=== PATIENT | female | born 1995 | race Caucasian/White ===

== ENCOUNTER 2017-08-13 08:15 | Emergency (ER) | payer BC ==
[2017-08-13 08:23] VITALS: BP 124/79; BMI 19.5
--- NOTE | 2017-08-13 08:48 | DR.GENAD ---
HPI - PCP Primary Care Physician: jj - Complaint/Symptoms Chief Complaint Doctors Comments: Patient presents with complaint of headache, generalized bodyaches, fever ,nausea and vomiting onset one day ago. No influenza shot. Chief Complaint:: pt stated for the last 2 days she has been tired,bodyaches, vomiting,diahrrea she has been running a fever at home. Self Treatment fo Chief Complaint: pt took motrin for the fever - Source History Provided: Patient - Mode of Arrival Mode of Arrival: Ambulatory - Timing Onset of Chief Complaint: 08/11/17 PMH - PMH Past Medical History: No Past Surgical History: Yes Surgical History: ER PHYSICIAN Surgery - Family History History of Family Medical Conditions: Yes Family Medical History: Cancer - Social History Does patient currently use any type of tobacco product: No Have you used tobacco products in the last 12 months: No Type of Tobacco Use: None Does any household member use tobacco: Yes Alcohol Use: Occasionally Do you use any recreational Drugs:: No Lives With: Family Lives Where: Home - infectious screening In the last 2 months have you had wt loss of >10#?: NO Have you had fever, night sweats or hemotysis?: No Have you traveled outside the country in the last 6 months?: No Isolation: Standard ROS - Review of Systems Constitutional: Chills, Fever, Fatigue Eyes: No Symptoms Reported ENTM: No Symptoms Reported Respiratoy: No Symptoms Reported Cardiovascular: No Symptoms Reported Gastrointestinal/Abdominal: No Symptoms Reported Genitourinary: No Symptoms Reported Neurological: No Symptoms Reported Musculoskeletal: No Symptoms Reported Integumentary: No Symptoms Reported Hematologic/Lymphatic: No Symptoms Reported Endocrine: No Symptoms Reported Psychiatric: No Symptoms Reported All Other Systems: Reviewed and Negative PE - Vital Signs Vitals: Temperature 99.6 F Pulse Rate 132 Respiratory Rate 18 Blood Pressure 124/79 O2 Sat by Pulse Oximetry 99 - General General Appearance: Alert, In No Apparent Distress - Head Head Exam: Normal Inspection, Atraumatic - Eyes Eye exam: Normal Appearance, PERRL, EOMI - ENT ENT Exam: Normal Exam, Other (cap refill upper limits of normal). negative: Mucous Membranes Dry External Ear Exam: Normal External Inspection TM/Canal Exam: Bilateral Normal Nose Exam: Normal Nose Exam Mouth Exam: Normal Inspection Throat Exam: Normal Inspection - Neck Neck Exam: Normal Inspection - Respiratory Respiratory Exam: Normal Lung Sounds Bilat Respiratory Exam: Bilateral Clear to Auscultation - Cardiovascular Cardiovascular Exam: Regular Rate, Normal Rhythm - Abdominal Exam Abdominal Exam: Normal Inspection Abdominal Tenderness: negative: RUQ, RLQ, LUQ, LLQ, Epigastrium, Suprapubic, Diffuse, Mild, Moderate, Severe, Other - Back Back Exam: Normal Inspection, Full ROM - Neurologic Neurological Exam: Alert, Oriented X3, CN II-XII Intact - Psychiatric Psychiatric Exam: Normal Affect - Skin Skin Exam: Warm, Dry, Intact Course - Reevaluation 1st: Improved (1005) ROR - Labs Reviewed Laboratory Results Reviewed?: Yes (Influenza negative, strep negative) Result Diagrams: 08/13/17 09:01 Laboratory: WBC 7.5 X10^3/uL (3.6-10.0) 08/13/17 09: RBC 5.05 X10^6/uL (3.5-5.4) 08/13/17 09:01 Hgb 14.8 g/dL (12.0-16.0) 08/13/17 09: Hct 43.6 % (36.0-47.0) 08/13/17 09:01 MCV 86.3 fL (80.0-100.0) 08/13/17 09:01 MCH 29.3 pg (27.0-34.0) 08/13/17 09:01 MCHC 33.9 g/dL (33.0-35.0) 08/13/17 09:01 RDW 13.5 % (11.6-16.5) 08/13/17 09:01 Plt Count 155 X10^3/uL (150.0-450.0) 08/13/17 09: Plt Count Comment Adequate (ADEQUATE) 08/13/17 09:01 MPV 8.2 fL (7.4-11.0) 08/13/17 09: Neut % 92.9 % (42.0-75.0) H 08/13/17 09: Lymph % 3.4 % (21.0-51.0) L 08/13/17 09:01 Wallace % 3.3 % (0.0-13.0) 08/13/17 09:01 Eos % 0.2 % (0.9-2.9) L 08/13/17 09:01 Baso % 0.2 % (0.2-1.0) 08/13/17 09:01 Neut # 6.9 x10^3/uL (2.2-4.8) H 08/13/17 09:01 Lymph # 0.3 X10^3/uL (1.3-2.9) L 08/13/17 09:01 Wallace # 0.2 x10^3/uL (0.3-0.8) L 08/13/17 09:01 Eos # 0.0 x10^3/uL (0.0-0.2) 08/13/17 09:01 Baso # 0.0 X10^3/uL (0.0-0.1) 08/13/17 09:01 Absolute Nucleated RBC 0.0 /100WBC 08/13/17 09:01 Total Counted 100 08/13/17 09:01 Neutrophils % (Manual) 77 % (39-76) H 08/13/17 09:01 Band Neutrophils % 19 % (0-10) H 08/13/17 09:01 Lymphocytes % (Manual) 1 % (13-43) L 08/13/17 09:01 Monocytes % (Manual) 3 % (4-9) L 08/13/17 09:01 Plt Morphology Comment Normal (NORMAL) 08/13/17 09:01 RBC Morphology Normal (NORMAL) 08/13/17 09:01 Influenza Type A (PCR) Negative (NEGATIVE) 08/13/17 08:32 Influenza Type B (PCR) Negative (NEGATIVE) 08/13/17 08:32 Streptococcus Screen Negative (NEGATIVE) 08/13/17 09:22 - Diagnosis Discharge Problem: Influenza-like symptoms - Discharge Plan Condition: Stable - Follow ups/Referrals Follow ups/Referrals: Larry Begum [Primary Care Provider] - 3 days - Instructions
[2017-08-13] MEDS ORDERED: NS 1000 ML 1,000 ML IV ONE (08:50)
[2017-08-13] MEDS ORDERED: TORADOL 30 MG VIAL IVP ONE (08:50)
[2017-08-13] MEDS ORDERED: ZOFRAN INJ 4 MG VIAL IVP ONE (08:50)
[2017-08-13] MEDS ORDERED: NS 1000 ML 1,000 ML ONE (08:52)
[2017-08-13] MEDS ORDERED: ZOFRAN INJ 4 MG VIAL ONE (09:08)
[2017-08-13] MEDS ORDERED: TORADOL 30 MG VIAL ONE (09:08)
[2017-08-13 09:15] LABS: BASOPHILS % (AUTO) 0.2 % (0.2-1.0); EOSINOPHILS % (AUTO) 0.2 % (0.9-2.9); HEMATOCRIT 43.6 % (36.0-47.0); HEMOGLOBIN 14.8 g/dL (12.0-16.0); LYMPHOCYTES # (AUTO) 0.3 X10^3/uL (1.3-2.9); LYMPHOCYTES % (AUTO) 3.4 % (21.0-51.0); MEAN CORPUSCULAR HEMOGLOBIN 29.3 pg (27.0-34.0); MEAN CORPUSCULAR HGB CONC 33.9 g/dL (33.0-35.0); MEAN CORPUSCULAR VOLUME 86.3 fL (80.0-100.0); MEAN PLATELET VOLUME 8.2 fL (7.4-11.0); MONOCYTES # (AUTO) 0.2 x10^3/uL (0.3-0.8); MONOCYTES % (AUTO) 3.3 % (0.0-13.0); NEUTROPHILS # (AUTO) 6.9 x10^3/uL (2.2-4.8); NEUTROPHILS % (AUTO) 92.9 % (42.0-75.0); PLATELET COUNT 155 X10^3/uL (150.0-450.0); RED BLOOD COUNT 5.05 X10^6/uL (3.5-5.4); RED CELL DISTRIBUTION WIDTH 13.5 % (11.6-16.5); WHITE BLOOD COUNT 7.5 X10^3/uL (3.6-10.0)
[2017-08-13 09:20] LABS: PLATELET MORPHOLOGY COMMENT NORMAL (NORMAL)
[2017-08-13 09:32] LABS: BAND NEUTROPHILS % 19 % (0-10)
== END 2017-08-13 10:22 | disposition home or self-care (01) ==
LOC: ER 08:30
DX: J11.1 Influenza due to unidentified influenza virus with other respiratory manifestations (principal)
CPT/HCPCS: 36415; 85025; 87070; 87502; 87880; 96365; 96374; 96375; 99283; A4222; J1885; J2405